=== PATIENT | female | born 1990 | race Caucasian/White ===

== ENCOUNTER → 2021-02-20 17:45 | Outpatient (CLI) | payer OTHER | END | disposition home or self-care (01) | LOC: NST 17:45 | PROVIDERS: ATTEND Obstetrics & Gynecology | DX: Z34.83 Encounter for supervision of other normal pregnancy, third trimester (principal) ==

== ENCOUNTER 2021-05-01 10:30 | Outpatient (CLI) | payer OTHER | END 2021-05-01 10:57 | disposition home or self-care (01) | LOC: NST 10:30 | PROVIDERS: ATTEND Obstetrics & Gynecology Maternal & Fetal Medicine | DX: Z34.83 Encounter for supervision of other normal pregnancy, third trimester (principal) ==

== ENCOUNTER 2021-05-05 12:00 | Outpatient (CLI) | payer OTHER | END 2021-05-05 13:06 | disposition home or self-care (01) | LOC: NST 12:00 | PROVIDERS: ATTEND Obstetrics & Gynecology Maternal & Fetal Medicine | DX: Z34.83 Encounter for supervision of other normal pregnancy, third trimester (principal) ==

== ENCOUNTER 2021-05-05 12:10 | Inpatient (IN) | payer OTHER ==
[~2021-05-05] VITALS: Ht 162.6 cm; Wt 2.7 kg
[2021-05-12] MEDS ORDERED: PRENATAL CAPLE1 EAC1 (08:45)
== END 2021-05-15 12:45 | disposition home or self-care (01) | DRG 788 ==
LOC: OB/GYN 12:10 → SURG-SUITE 05-12 06:55 → LDR 05-12 06:55 → SURG-SUITE 05-12 21:16
PROVIDERS: ADMIT Obstetrics & Gynecology Maternal & Fetal Medicine; ATTEND Obstetrics & Gynecology Maternal & Fetal Medicine
PROC: 10907ZC Drainage of Amniotic Fluid, Therapeutic from Products of Conception, Via Natural or Artificial Opening (ICD-10-PCS; 2021-05-12)
PROC: 3E033VJ Introduction of Other Hormone into Peripheral Vein, Percutaneous Approach (ICD-10-PCS; 2021-05-12)
PROC: 4A1HXFZ Monitoring of Products of Conception, Cardiac Rhythm, External Approach (ICD-10-PCS; 2021-05-12)
PROC: 10D00Z1 Extraction of Products of Conception, Low, Open Approach (ICD-10-PCS; principal; 2021-05-12 21:30)
DX: O62.1 Secondary uterine inertia (principal); O48.0 Post-term pregnancy; O99.824 Streptococcus B carrier state complicating childbirth; Z3A.41 41 weeks gestation of pregnancy; Z37.0 Single live birth

== ENCOUNTER 2021-05-08 10:33 | Outpatient (CLI) | payer OTHER | END 2021-05-08 11:28 | disposition home or self-care (01) | LOC: NST 10:33 | PROVIDERS: ATTEND Obstetrics & Gynecology Maternal & Fetal Medicine | DX: Z34.83 Encounter for supervision of other normal pregnancy, third trimester (principal) ==

== ENCOUNTER 2021-05-11 09:46 | Outpatient (CLI) | payer OTHER ==
[2021-05-12] MEDS ORDERED: PRENATAL CAPLE1 EAC1 (08:45)
== END 2021-05-11 11:22 | disposition home or self-care (01) ==
LOC: NST 09:46
PROVIDERS: ATTEND Obstetrics & Gynecology Maternal & Fetal Medicine
DX: O48.0 Post-term pregnancy (principal)